=== PATIENT | male | born 1960 | race Caucasian/White ===

== ENCOUNTER 2024-07-17 12:07 | Emergency (ER) | payer MEDICARE, OTHER, SELFPAY ==
[2024-07-17 12:09] VITALS: BP 128/75
--- NOTE | 2024-07-17 14:37 | ED.GENMED ---
History of Present Illness
General
Chief Complaint: Skin Surface Trauma
Source: patient
Exam Limitations: none
Time Seen by Provider: 07/17/24 12:34
Nursing documentation reviewed up to this point in time: agreed with
History of Present Illness
History of Present Illness:
Patient is a 63-year-old male who presents for a avulsion laceration to right fifth finger on a mandolin slicer. His last tetanus up-to-date.
Denies any other injuries.
Review of Systems
Review of Systems
Allergies reviewed?: Yes
All Other Systems: ROS reviewed and negative except as documented in HPI and ROS
Constitutional: Reports no symptoms; Denies fever, fatigue or chills
Musculoskeletal: Reports other (right 5th finger skin injury )
Skin: Reports other (see above )
Neurological: Reports no symptoms
Psychiatric: Reports no symptoms
Phy Exam
General Physical Exam
General Presentation: no apparent distress
General age: appears stated age
General Skin: warm and dry
General Habitus: normal
General Mental: alert
General Hydration: appears well hydrated
Neurological Exam
Neurological Exam: alert and oriented x3
Musculoskeletal Exam
Musculoskeletal Exam: other (Patient with 3 x 2 cm avulsion laceration to medial aspect of distal phalanx of right fifth finger + oozing blood, able to flex/extend no bony tenderness )
Skin Exam
Skin Exam: normal color and warm/dry
Psychiatric Exam
Psychiatric Exam: normal mood/affect
Course
Vital Signs
Initial and Last Documented VS:
Initial Vital Signs
Temp Pulse Resp BP Pulse Ox
98.3 F 55 18 128/75 99
07/17/24 12:09 07/17/24 12:09 07/17/24 12:09 07/17/24 12:09 07/17/24 12:09
Last Documented Vital Signs
Temp Pulse Resp BP Pulse Ox
98.3 F 55 18 128/75 99
07/17/24 12:09 07/17/24 12:09 07/17/24 12:09 07/17/24 12:09 07/17/24 12:09
Procedures
Laceration Closure
Right Distal Fifth Finger:
Status of Wound: clean
Size of Wound in cm: 3
Description of Wound Edges: other (avulsion laceration)
Preparation: cleaned with saline
Type of Closure: other (+ gelfoam in place )
MDM/Problems Addressed
Differential Diagnosis Includes:
not limited to: skin avulsion
MDM/Problems Addressed:
Patient with skin avulsion to right fifth finger oozing blood from a mandolin prior to arrival. No bony tenderness normal distal sensation full flexion extension. Wound was irrigated with copious elisha normal saline Gelfoam was applied which
stopped bleeding. Wound care reviewed. Tetanus was up-to-date.
*Critical Care Note
Total Time (30-74mins, 75-104mins- exclusive of procedures): Not Applicable
ED Attending Note
-
Portions of this chart may have been created with voice recognition software.� Occasional wrong word or��sound alike� substitutions may have occurred due to the inherent limitations of voice recognition software.
Discharge Plan
Departure
Patient Disposition: Home (Routine Discharge)
Date of Disposition: 07/17/24
Time of Disposition: 14:37
Patient with high blood pressure during this ER visit?: Yes
Condition: Fair
Covid-19: Not Applicable
Discharge Problem:
avulsion
Instructions: Wound Care (DC)
Referrals:
Estrella Jimenez DO [Family Provider] -
Activity Restrictions/Additional Instructions:
As discussed keep dressing in place clean and dry for the next 24 hours after 24 hours you may remove the outer dressing but keep the Gelfoam in place. This will fall off on its own. Follow-up with your family doctor in the next several days for
wound check. Return if any signs of infection of increased pain swelling redness drainage fever chills
Interventions
Interventions:
*Risk Screen - Suicide Last Done: 07/17/24 12:09
*General Assessment Last Done: 07/17/24 12:09
*Nursing Disposition Last Done: 07/17/24 14:51
ED-Skin Assessment Last Done: 07/17/24 13:12
Discharge Date and Time
Discharge Date/Time: 07/17/24 14:51
Print Language: DIVEHI
== END 2024-07-17 14:51 | disposition home or self-care (01) ==
LOC: EMR 12:07
PROVIDERS: EMERGENCY PHYSICIAN Emergency Medicine; FAMILY PHYSICIAN Family Medicine
DX: S61.306A Unspecified open wound of right little finger with damage to nail, initial encounter (principal); W27.4XXA Contact with kitchen utensil, initial encounter; R03.0 Elevated blood-pressure reading, without diagnosis of hypertension
CPT/HCPCS: 99282